=== PATIENT | male | born 1960 | race Caucasian/White ===

== ENCOUNTER → 2024-06-04 10:48 | Outpatient (REF) | payer OTHER, SELFPAY | LOC: PET 10:48 | PROVIDERS: ATTENDING PHYSICIAN Internal Medicine Cardiovascular Disease | DX: R07.89 Other chest pain (principal) | CPT/HCPCS: 78431; A9555; J2785 ==

== ENCOUNTER → 2024-08-05 07:48 | Outpatient (REF) | payer OTHER, SELFPAY | LOC: RAD 07:48 | PROVIDERS: ATTENDING PHYSICIAN Specialist; FAMILY PHYSICIAN Family Medicine | DX: Z86.19 Personal history of other infectious and parasitic diseases (principal) | CPT/HCPCS: 76700 ==

== ENCOUNTER 2024-08-09 06:17 | Day surgery (SDC) | payer OTHER, SELFPAY | END 2024-08-09 12:54 | disposition home or self-care (01) | LOC: GI 06:17 | PROVIDERS: ATTENDING PHYSICIAN Specialist | DX: Z12.11 Encounter for screening for malignant neoplasm of colon (principal); K57.30 Diverticulosis of large intestine without perforation or abscess without bleeding; K64.8 Other hemorrhoids; K44.9 Diaphragmatic hernia without obstruction or gangrene; C15.5 Malignant neoplasm of lower third of esophagus; K63.5 Polyp of colon; D49.0 Neoplasm of unspecified behavior of digestive system; K22.70 Barrett's esophagus without dysplasia; Z86.0101 Personal history of adenomatous and serrated colon polyps | CPT/HCPCS: 45380; 43239; 88305; 88342; 88360 ==

== ENCOUNTER → 2024-08-14 13:58 | Outpatient (REF) | payer OTHER, SELFPAY | LOC: RAD 13:58 | PROVIDERS: ATTENDING PHYSICIAN Specialist; FAMILY PHYSICIAN Family Medicine | DX: K22.89 Other specified disease of esophagus (principal) | CPT/HCPCS: 71260; 74177; Q9967 ==

== ENCOUNTER 2024-09-05 06:18 | Day surgery (SDC) | payer OTHER, SELFPAY ==
[2024-09-05 12:15] VITALS: BMI 24.3
[2024-09-05 12:20] VITALS: BMI 24.3
[2024-09-05 12:21] VITALS: BP 141/78
[2024-09-05 15:34] VITALS: BP 110/60
[2024-09-05 15:45] VITALS: BP 105/70
[2024-09-05 16:00] VITALS: BP 118/55
== END 2024-09-05 16:20 | disposition home or self-care (01) ==
LOC: GI 06:18
PROVIDERS: ATTENDING PHYSICIAN Internal Medicine Gastroenterology
DX: C15.5 Malignant neoplasm of lower third of esophagus (principal); E11.9 Type 2 diabetes mellitus without complications; K22.81 Esophageal polyp
CPT/HCPCS: 43259

== ENCOUNTER → 2024-09-05 07:41 | Outpatient (REF) | payer OTHER, SELFPAY | LOC: PET 07:41 | PROVIDERS: ATTENDING PHYSICIAN Internal Medicine Hematology & Oncology | DX: C15.5 Malignant neoplasm of lower third of esophagus (principal) | CPT/HCPCS: 78815; A9552 ==

== ENCOUNTER → 2024-09-13 09:39 | Outpatient (REF) | payer OTHER, SELFPAY ==
[2024-09-13 10:34] VITALS: BP 127/73; BP_SYST 54; BMI 24.5
[2024-09-13] MEDS: ANCEF 10 IV (11:22)
[2024-09-13 12:15] VITALS: BP 122/68
== END ==
LOC: RADI 09:39
PROVIDERS: ATTENDING PHYSICIAN Internal Medicine Hematology & Oncology; FAMILY PHYSICIAN Family Medicine
DX: C15.5 Malignant neoplasm of lower third of esophagus (principal)
CPT/HCPCS: 36561; 76937; 77001; 99152; 99153; C1788

== ENCOUNTER 2024-09-16 15:29 | Outpatient (RCR) | payer OTHER, SELFPAY ==
[2024-09-16 11:40] LABS: % Basophils 0.9 % (0-2); % Eosinophils 7.9 % (0-6); % Immature Granulocytes 0.5 % (0-0.5); % Lymphocytes 19.2 % (20.5-51.1); % Monocytes 5.4 % (1.7-9.3); % Neutrophils 66.1 % (42.2-75.2); Absolute Basophils 0.1 10^3/uL (0-0.2); Absolute Eosinophils 0.4 10^3/uL (0-0.7); Absolute Lymphocytes 1.1 10^3/uL (1.2-3.4); Absolute Monocytes 0.3 10^3/uL (0.1-0.6); Absolute Neutrophils 3.7 10^3/uL (1.4-6.5); Hematocrit 43.6 % (39.0-52.0); Hemoglobin 14.7 g/dL (13.0-18.0); Mean Corp Hgb Conc. 33.7 g/dL (33.0-37.0); Mean Corpuscular Hgb 31.6 pg (27.0-31.0); Mean Corpuscular Volume 93.8 fL (80.0-94.0); Mean Platelet Volume 10.2 fL (7.4-10.4); Platelet Count 182 10^3/uL (130-400); Red Blood Cell Count 4.65 10^6/uL (4.70-6.10); Red Cell Dist. Width 12.8 % (11.5-14.5); White Blood Cell Count 5.6 10^3/uL (4.8-10.8)
[2024-09-16 12:36] LABS: ALT (SGPT) 34 U/L (0-50); AST (SGOT) 29 U/L (17-59); Albumin 4.6 g/dl (3.5-5.0); Alkaline Phosphatase 57 U/L (38-126); Blood Urea Nitrogen 17 mg/dl (9-20); Calcium 9.4 mg/dl (8.4-10.2); Carbon Dioxide 23 mmol/L (22-30); Chloride 112 mmol/L (98-107); Glucose 104 mg/dl (70-99); Potassium 4.1 mmol/L (3.5-5.1); Sodium 144 mmol/L (135-145); Total Bilirubin 0.7 mg/dl (0.2-1.3); Total Protein 7.2 g/dl (6.3-8.2); eGFR > 60.00
== END 2024-10-14 23:59 | disposition home or self-care (01) ==
LOC: OID 15:29
PROVIDERS: ATTENDING PHYSICIAN Internal Medicine Hematology & Oncology
DX: C15.5 Malignant neoplasm of lower third of esophagus (principal)
CPT/HCPCS: 80053; 85025

== ENCOUNTER → 2024-11-06 15:48 | Outpatient (REF) | payer OTHER, SELFPAY | LOC: RCS 15:48 | PROVIDERS: ATTENDING PHYSICIAN Internal Medicine Cardiovascular Disease; FAMILY PHYSICIAN Family Medicine | DX: C15.5 Malignant neoplasm of lower third of esophagus (principal) | CPT/HCPCS: 93306 ==

== ENCOUNTER → 2025-03-24 13:36 | Outpatient (REF) | payer OTHER, SELFPAY | LOC: RAD 13:36 | PROVIDERS: ATTENDING PHYSICIAN Internal Medicine Hematology & Oncology | DX: C15.5 Malignant neoplasm of lower third of esophagus (principal) | CPT/HCPCS: 71046 ==

== ENCOUNTER 2025-04-16 03:17 | Emergency (ER) | payer OTHER, SELFPAY ==
[2025-04-16 03:34] VITALS: BP 165/69
[2025-04-16 04:01] LABS: Hematocrit 33.9 % (39.0-52.0); Hemoglobin 10.8 g/dL (13.0-18.0); Mean Corp Hgb Conc. 31.9 g/dL (33.0-37.0); Mean Corpuscular Volume 89.0 fL (80.0-94.0); Nucleated Red Blood Cells % 0 % (-); Platelet Count 250 10^3/uL (130-400); Red Cell Dist. Width 14.5 % (11.5-14.5)
[2025-04-16 04:26] LABS: ALT (SGPT) 29 U/L (0-50); AST (SGOT) 29 U/L (17-59); Albumin 3.7 g/dl (3.5-5.0); Alkaline Phosphatase 124 U/L (38-126); Blood Urea Nitrogen 13 mg/dl (9-20); Calcium 9.1 mg/dl (8.4-10.2); Carbon Dioxide 26 mmol/L (22-30); Chloride 109 mmol/L (98-107); Glucose 104 mg/dl (70-99); Lipase 132 U/L (23-300); Potassium 4.1 mmol/L (3.5-5.1); Sodium 141 mmol/L (135-145); Total Protein 6.9 g/dl (6.3-8.2); eGFR > 60.00
--- NOTE | 2025-04-16 06:50 | ED.GENMED ---
History of Present Illness
General
Chief Complaint: Flank Pain
Source: patient
Exam Limitations: none
Time Seen by Provider: 04/16/25 06:36
History of Present Illness
History of Present Illness:
See MDM
Past History
Past History
ED Past Medical History: Cancer
ED Past Surgical History: Other (J tube)
Social History
Tobacco: Non-smoker
Alcohol: None
Phy Exam
Physical Exam
Physical Exam:
See MDM
Course
Orders/Labs/Results
Orders:
Orders
04/16/25 03:39
IV Insert/Care/Rem.- Treatment PRN
04/16/25 03:44
Complete Blood Count/With Diff Urgent
Comprehensive Metabolic Panel Urgent
Lactic Acid Urgent
Lipase Urgent
04/16/25 06:49
CT Abd/pel Without Iv Or Oral Urgent
Comment:
Reason For Exam: left flank pain
0.9% Sodium Chloride 1000 ml [Nss] 1,000 ml IV BOLUS
HYDROmorphone [Dilaudid] 1 mg IV NOW STA
Ondansetron Injectable [Zofran] 4 mg IV NOW STA
04/16/25 10:33
HYDROmorphone [Dilaudid] 1 mg IV NOW STA
04/16/25 10:39
Urinalysis Reflex To Culture Urgent
Date Specimen was Collected: 04/16/25
Time Specimen was Collected: 03:39
Urine Microscopic Reflex Cult Urgent
Abnormal Lab Results
04/16/25 04/16/25
03:44 10:39
RBC 3.81 L 10^6/uL
(4.70-6.10)
Hgb 10.8 L g/dL
(13.0-18.0)
Hct 33.9 L %
(39.0-52.0)
MCHC 31.9 L g/dL
(33.0-37.0)
Absolute Monos (auto) 0.7 H 10^3/uL
(0.1-0.6)
Lymphocytes % 19.6 L %
(20.5-51.1)
Monocytes % 11.2 H %
(1.7-9.3)
Chloride 109 H mmol/L
(98-107)
Glucose 104 H mg/dl
(70-99)
Ur Occult Blood Reflex 4+ A
(Negative)
Urine RBC 30-40 A /HPF
(0-2)
Urine Bacteria (Reflex) Few A
(Negative)
Urine Albumin (Reflex) 2+ A
(Neg - Trace)
04/16/25 03:44
04/16/25 03:44
Vital Signs
Initial and Last Documented VS:
Initial Vital Signs
Temp Pulse Resp BP Pulse Ox
97.8 F 59 18 165/69 97
04/16/25 03:34 04/16/25 03:34 04/16/25 03:34 04/16/25 03:34 04/16/25 03:34
Last Documented Vital Signs
Temp Pulse Resp BP Pulse Ox
97.8 F 61 18 145/61 97
04/16/25 03:34 04/16/25 07:53 04/16/25 03:34 04/16/25 08:00 04/16/25 08:30
MDM/Problems Addressed
Differential Diagnosis Includes:
Note:
CHIEF COMPLAINT(S)
Flank pain
HISTORY OF PRESENT ILLNESS
The patient is a 64-year-old male with a history of recent esophageal surgery two months ago, presenting with Left flank pain radiating into the back. The patient reports symptoms of vomiting every 45 minutes consisting of dry heaving and saliva due
to a lack of an esophagus. There is an inability to pass gas and urinate since this morning. The patient denies fever and states the abdominal area is not distended. There is no history of kidney stones. The patients diet has been limited
post-surgery, leading to significant weight loss.
NEXT MEDICAL AND SURGICAL HISTORY
Recent surgery two months ago (specifics not mentioned). History of kidney stones.
PHYSICAL EXAM
General: Alert, no acute distress.
Skin: Warm, dry.
Head: Normocephalic, atraumatic
Neck: Appears supple, trachea midline.
Eyes, Ears, Nose, Mouth, and Throat: Dry mucous membranes
Cardiovascular: No signs of cyanosis
Respiratory: Respirations are non-labored.
Abdomen: Non-distended. Mild left flank pain without rebound
Musculoskeletal: No deformities
Neurological: No focal neurological deficit observed.
Psychiatric: Cooperative, appropriate mood and affect.
PLAN
- Administer intravenous fluids.
- Administer analgesic medication (strong narcotic pain medication considered for severe pain).
- Perform a CT scan to assess for kidney stones or potential bowel obstruction.
DIFFERENTIAL DIAGNOSIS
The Differential Diagnosis includes, in no particular order, and is not limited to:
- Kidney stones
- Urinary tract obstruction
- Bowel obstruction
- Constipation
- Acute kidney injury
- Pyelonephritis
- Dehydration
- Post-surgical adhesion
- Prostate hypertrophy
- Gastrointestinal malignancy
SUMMARY OF ENCOUNTER
The patient presented to the emergency department with symptoms including flank pain, inability to pass gas, and an absence of urination, with vomiting limited to dry heaving due to the absence of an esophagus. A past history of kidney stones was
noted. The treatment plan included pain management, rehydration with IV fluids, and a CT scan to detect kidney stones or a bowel obstruction.
INDEPENDENT REVIEW OF LABS AND INTERPRETATION OF TESTS
My independent interpretation of the CT scan will investigate potential urinary tract obstruction or presence of kidney stones.
FOLLOW-UP INSTRUCTIONS
The patient will be further evaluated following CT results to determine the presence of kidney stones or any other potential causes of current symptoms.
MEDICATION RECONCILIATION
Strong narcotic pain medication was considered for pain management.
MEDICAL DECISION MAKING
- Number and Complexity of Problems Addressed: Chronic conditions affecting care include a history of kidney stones.
- Data:
- Category 1: Lab tests include a CT scan to investigate possible urinary obstruction.
- Category 3: Management considerations include ordering a CT scan and rehydration.
- Risk:
Consideration of admission or observation due to potential acute kidney injury or urinary tract obstruction. However, pending and based on CT scan results for further management.
DIAGNOSIS
- Flank pain, unspecified (ICD-10: R10.9)
- Urinary retention (ICD-10: R33.9)
- Vomiting, unspecified (ICD-10: R11.10)
- Personal history of kidney stones (ICD-10: Z87.442)
SUMMARY OF ENCOUNTER
The patient presented to the emergency department with left flank pain radiating to the groin. Given the patients prior history of kidney stones and recent surgery, a CT scan was performed to rule out any complications. The CT confirmed a recent
kidney stone passage. The patient was treated with narcotic pain medication in the emergency department and reported significant improvement in symptoms. Urinalysis was negative for infection.
DISPOSITION
Discharge.
ASSESSMENT
Likely passed kidney stone.
EMERGENCY TREATMENTS ADMINISTERED
Narcotic pain medication administered during the visit.
PLAN
The patient was provided pain relief and monitored for improvement in symptoms.
INDEPENDENT REVIEW OF LABS AND INTERPRETATION OF TESTS
My independent interpretation of the CT scan confirms the presence of a recently passed kidney stone. Urinalysis was negative for any infectious etiology.
FOLLOW-UP INSTRUCTIONS
The patient should follow up with their primary care physician or urologist for further evaluation and management of kidney stones.
MEDICATION RECONCILIATION
Prescribed oxycodone for pain management.
MEDICAL DECISION MAKING
1. Number and Complexity of Problems Addressed: Chronic conditions affecting care include a history of kidney stones. Differential diagnosis considered includes kidney stones, urinary tract obstruction, and post-surgical adhesion.
2. Data:
- Category 1: Lab tests include urinalysis and CT scan interpretation.
3. Risk: Prescription medication management for pain control with oxycodone was indicated.
DIAGNOSIS
- Kidney stone, unspecified (ICD-10: N20.9)
- History of kidney stones (ICD-10: Z87.442)
*Pulse Oximetry
SaO2: 97
Oxygen Mode of Delivery: Room air
Patient hypoxic: no
*Critical Care Note
Total Time (30-74mins, 75-104mins- exclusive of procedures): Not Applicable
ED Attending Note
-
Portions of this chart may have been created with voice recognition software.� Occasional wrong word or��sound alike� substitutions may have occurred due to the inherent limitations of voice recognition software.
Discharge Plan
Departure
Patient Disposition: Home (Routine Discharge)
Date of Disposition: 04/16/25
Time of Disposition: 11:54
Patient with high blood pressure during this ER visit?: Yes
Discharge Problem:
Kidney stone on left side
Instructions: Kidney Stones (DC), BLOOD PRESSURE
Prescriptions:
New
oxycodone 5 mg/5 mL solution
5 mg feeding tube Q6H PRN (Reason: Pain) Qty: 100 0RF
No Action
amlodipine 10 mg Tablet
10 mg PO DAILY
omeprazole 20 mg Capsule,Delayed Release(Dr/Ec)
20 mg PO DAILY
aspirin [Low-Dose Aspirin] 81 mg Tablet
81 mg PO DAILY
rosuvastatin 20 mg Tablet
20 mg PO DAILY
Referrals:
Yossi Frost DO [Family Provider, Family Practice]
Activity Restrictions/Additional Instructions:
Please return for any worsening symptoms.
You may return at any time if you have further concerns.
Please follow up with your doctor at the first available appointment, preferably this week.
Based on your exam and the CT findings, you likely already passed the kidney stone.
Your Prescriptions were sent to the pharmacy on file.
You were given a prescription for narcotics. If you require this pain medicine, please take a daily [id number] stool softener to avoid constipation.
Thank you for choosing [facility].
Interventions
Interventions:
*General Assessment Last Done: 04/16/25 03:34
*Neglect/Abuse Screening Last Done: 04/16/25 07:53
*ED COVID-19 Vaccine History Last Done: 04/16/25 07:53
*ED Influenza Vaccine History Last Done: 04/16/25 07:53
[facility] Risk Assessment Tool Last Done: 04/16/25 07:30
*Risk Screen - Suicide (C-SSRS) Last Done: 04/16/25 03:34
HK-Iyjpgo-Qqkvxginrg Assessment Last Done: 04/16/25 07:53
ED-Male Genitourinary Assessment Last Done: 04/16/25 07:53
Discharge Date and Time
Print Language: ICELANDIC
[2025-04-16 07:29] VITALS: BMI 21.3
[2025-04-16] MEDS: DILAUDID 1 MG IV ×2 (07:42→10:41)
[2025-04-16] MEDS: NSS 1000 IV (07:42)
[2025-04-16] MEDS: ZOFRAN 4 MG IV (07:42)
[2025-04-16 08:00] VITALS: BP 145/61
[2025-04-16 09:00] VITALS: BP 146/62
[2025-04-16 10:00] VITALS: BP 146/69
[2025-04-16 10:56] LABS: Urine Character Clear (Clear)
[2025-04-16 11:00] VITALS: BP 148/76
[2025-04-16 11:21] LABS: Urine Squamous Cell 0-2 /LPF (Few)
[2025-04-16 11:22] LABS: Urine Red Blood Cell 30-40 /HPF (0-2); Urine White Cell 0-2 /HPF (0-5)
== END 2025-04-16 12:28 | disposition home or self-care (01) ==
LOC: EMR 03:17
PROVIDERS: Student in an Organized Health Care Education/Training Program; EMERGENCY PHYSICIAN Student in an Organized Health Care Education/Training Program; FAMILY PHYSICIAN Family Medicine
DX: N13.2 Hydronephrosis with renal and ureteral calculous obstruction (principal); Z87.442 Personal history of urinary calculi; Z85.01 Personal history of malignant neoplasm of esophagus; Z93.4 Other artificial openings of gastrointestinal tract status
CPT/HCPCS: 99284; 96374; 96375; 96376; 96361; 74176; 80053; 81003; 81015; 83605; 83690; 85025